=== PATIENT | female | born 1970 | race Caucasian/White ===

== ENCOUNTER 2020-12-27 16:36 | Emergency (ER) | payer OTHER, SELFPAY ==
[2020-12-27 17:04] VITALS: BP 158/97; PULSE 69; RESP 18; TEMP 36.9; O2SAT 95; BMI 41.3
--- NOTE | 2020-12-27 20:46 | ED.GENADULT ---
HPI - General Adult General Chief complaint: General Medical Stated complaint: jaw pain Time Seen by Provider: 12/27/20 20:46 Source: patient Mode of arrival: ambulatory Limitations: no limitations History of Present Illness HPI narrative: Came in for evaluation of left jaw pain and left facial swelling. 50-year-old female with history of grinding her teeth with TMJ tendinitis, came in for 4 days of left Gus, left ear, left facial pain, feeling dizzy, patient also had left eye discharge which is clear now. No fever or chills, no nausea, no vomiting, no headache, no chest pain. Related Data Allergies Allergy/AdvReac Type Severity Reaction Status Date / Time amoxicillin [AMOXICILLIN] Allergy Unknown RASH Verified 12/27/20 17:03 doxycycline [DOXYCYCLINE] Allergy Unknown RASH Verified 12/27/20 17:03 clavulanic acid Allergy Rash Verified 12/27/20 17:03 [From Augmentin] Review of Systems Review of Systems: All other systems are reviewed and are negative Constitutional: Reports as per HPI and Reports no additional constitutional complaints Eyes: Reports as per HPI and Reports no additional eye complaints Reports system reviewed and no additional complaints, except as documented Cardiovascular: Reports as per HPI and Reports no additional cardiovascular complaints Respiratory: Reports as per HPI and Reports no additional respiratory complaints Gastrointestinal: Reports as per HPI and Reports no additional gastrointestinal complaints Genitourinary: Reports no additional female genitourinary complaints Musculoskeletal: Reports no additional musculoskeletal complaints Skin/Breast: Reports system reviewed and no additional complaints, except as docu Psychiatric: Reports no additional psychiatric complaints Endocrine: Reports no additional endocrine complaints Hematologic/Lymphatic: Reports no additional hematologic/lymphatic complaints Allergic/Immunologic: Reports no additional allergic/immunologic complaints Reports system reviewed and no additional complaints, except as documented and Reports Abnormal speech present [facility] Past Medical History Medical History PFO (patent foramen ovale) TIA (transient ischemic attack) Social History Social History Advance Directives: No Advance Directives Information Provided: No Patient : No Physical Exam Vital Signs: Vital Signs: Last Vital Signs Temp 98.5 F 12/27/20 17:04 Pulse 69 12/27/20 17:04 Resp 18 12/27/20 17:04 BP 158/97 H 12/27/20 17:04 Pulse Ox 95 12/27/20 17:04 Body Mass Index 41.3 Vital signs have been reviewed as appeared to be correct. Blood pressure elevated. Heart rate normal. Respiration rate normal. Temperature normal. Oxygen saturation normal. Appearance: Alert. Oriented X3. No acute distress. Head: Normal external exam. Normocephalic. Atraumatic. No Jackson signs noted. No raccoon eyes noted, reproducible tenderness over the left TMJ, with no clicking, no dental issue, no gum swelling or fluctuation. Eyes: PERRLA. EOMI. Conjunctiva and sclera normal. Eyelids normal. ENT: TM's Normal. Pharynx normal. Uvula midline. Moist mucous membranes. No trismus noted. No drooling noted. No muffled voice noted. Neck: Normal inspection. Neck supple. FROM. No adenopathy. Thyroid Normal. No meningeal signs. No neck mass noted. CVS: Normal heart rate and rhythm. Heart sound normal. No murmurs noted. Pulses normal throughout. Respiratory: No respiratory distress. Painless inspiration. Breath sounds normal. No wheezes/rales/rhonchi noted. Chest nontender. No accessory muscle usage noted or decreased air movement noted. Abdomen: Soft and nontender. Bowel sounds normal in all 4 quadrants. No distention noted. No organomegaly noted. No visible injury noted. Back: No CVA tenderness. Full range of motion noted. Skin: Skin warm and dry. Normal skin color. Normal skin turgor. No rashes/lesions/lacerations noted. Extremities: No lower extremity edema. Extremities exhibit normal range of motion. Extremities nontender. Neuro: Oriented X 3. Cranial nerve exam: II-XII are grossly intact No motor deficit. No sensory deficit. Reflexes normal. Course Course Course Narrative: Assessment and plan. 50-year-old female came in for evaluation of a left TMJ pain, physical exam is consistent with left TMJ. Patient was instructed to wear a mouth guard, follow up with her dentist, use NSAIDs, apply ice. Discharge Plan Discharge Clinical Impression: TMJ arthralgia Qualifiers: Laterality: left Qualified Code(s): M26.622 - Arthralgia of left temporomandibular joint Patient Disposition: Home, Self-Care Instructions: Temporomandibular Disorder (ED) Additional Instructions: Follow-up with your dentist. Referrals: Kirill Potts MD [Primary Care Provider] - 2 days
[2020-12-27 20:50] VITALS: BP 146/87; PULSE 67; RESP 18; TEMP 36.7; O2SAT 95
== END 2020-12-27 21:14 | disposition home or self-care (01) ==
PROVIDERS: Emergency Provider Emergency Medicine; PCP Internal Medicine
DX: M26.622 Arthralgia of left temporomandibular joint (principal)
CPT/HCPCS: 99282

== ENCOUNTER 2021-07-01 09:56 | Outpatient (REF) | payer OTHER, SELFPAY ==
--- NOTE | ~2021-07-01 | XR_ITS ---
EXAMINATION: XR SHOULDER, LEFT CLINICAL INFORMATION: Pain COMPARISON: Previous x-ray June 2013 TECHNIQUE: AP external rotation, Grashey, scapular Y, and axillary views of the left shoulder. FINDINGS: Bone alignment is normal. No acute fracture or dislocation is seen. The glenohumeral joint is normal. There is mild arthritis at the acromioclavicular joint. There are new soft tissue calcifications or ossifications over the left superior glenoid. These are seen on one view/neutral AP view only. Soft tissues are otherwise normal. XR/XR shoulder LT min 2V IMPRESSION: Mild arthritis of the acromion clavicular joint. New soft tissue calcifications or ossifications adjacent to the superior glenoid.
== END 2021-07-01 09:57 | disposition home or self-care (01) ==
LOC: HO.HOSX 09:56
PROVIDERS: PCP Internal Medicine; Visit Provider Physician Assistant
DX: M75.102 Unspecified rotator cuff tear or rupture of left shoulder, not specified as traumatic (principal)
CPT/HCPCS: 73030

== ENCOUNTER 2022-11-04 10:53 | Outpatient (REF) | payer OTHER, SELFPAY | END 2022-11-04 10:54 | disposition home or self-care (01) | LOC: HO.HOSX 10:53 | PROVIDERS: Visit Provider Physician Assistant | DX: Z13.89 Encounter for screening for other disorder (principal) ==

== ENCOUNTER 2023-02-06 07:17 | Emergency (ER) | payer OTHER, SELFPAY ==
--- NOTE | ~2023-02-06 | CT_ITS ---
EXAMINATION: CT ABDOMEN AND PELVIS WITH CONTRAST CLINICAL INFORMATION: Abdominal pain with bruising COMPARISON: None available. TECHNIQUE: Multidetector volumetric images were obtained from the superior aspect of the liver through the pubic symphysis following administration 85 mL of Omnipaque 350 intravenous contrast. Sagittal and coronal reformatted images were obtained on the technologist's workstation. Oral contrast: No This CT examination was performed using dose optimization techniques as appropriate, variously including the following: *Automated exposure control *Adjustment of mA and/or kV according to patient size (this includes techniques or standardized protocols for targeted exams where dose is matched to indication/reason for exam; i.e. extremities or head) *Use of iterative reconstruction technique DLP: 723 mGy-cm FINDINGS: FIELD RESEARCH ASSOCIATE: Nonspecific bowel pattern. LUNG BASES: Mild atelectasis. Nonenlarged heart. No pericardial effusion. LIVER, GALLBLADDER, AND BILIARY TREE: The liver is normal in size, shape, and attenuation. No focal hepatic lesion or biliary ductal dilatation is present. The gallbladder is unremarkable with no evidence of radiopaque gallstones, gallbladder wall thickening, or obvious pericholecystic inflammatory changes. PANCREAS: Unremarkable. SPLEEN: Unremarkable. ADRENAL GLANDS: Unremarkable. KIDNEYS AND URETERS: The kidneys are normal in size, shape, and attenuation. No hydronephrosis or calculi seen. Mild left ureteral prominence. No perinephric stranding. BLADDER: Unremarkable. GASTROINTESTINAL TRACT: Decompressed stomach. Nonobstructive bowel pattern. Unremarkable appendix. No colonic pathology recognized. ABDOMINAL WALL: Dense and comparatively enlarged right rectus abdominis muscle with surrounding soft tissue stranding. Rectus diastasis. Small fat filled umbilical and inguinal hernias. LYMPH NODES: Normal. VASCULAR: Atherosclerotic calcifications nonaneurysmal aorta with patency of mesenteric vessels. Unremarkable inferior vena cava and iliac veins. Patent portal system. PELVIC VISCERA: Likely nabothian cysts and bilateral small ovarian cysts. Pelvic phleboliths. OSSEOUS STRUCTURES: L5-S1 disc bulge. No suspicious osseous lesions CT/CT abdomen pelvis w IV con IMPRESSION: Right rectus hematoma. Fleischner guidelines were followed.
[2023-02-06 07:20] VITALS: BP 191/80; PULSE 85; RESP 18; TEMP 36.8; O2SAT 94; BMI 43.7
[2023-02-06 07:37] VITALS: BP 196/84; PULSE 84; RESP 20; O2SAT 96
--- NOTE | 2023-02-06 07:44 | ED.SKABFB ---
HPI - Skin/Abscess/Foreign Bdy General Chief complaint: Skin/Abscess/Foreign Body Stated complaint: Bruising on stomach, sharp pain Time Seen by Provider: 02/06/23 07:29 History of Present Illness HPI narrative: Patient is a 52-year-old female presenting with having bruising over the abdomen. No nausea no vomiting. No new back pain. History of having elevated white counts in the past. Denies any fever chills. No pain on urination no dizziness. Bowel movement has been normal. No blood in the stool. Not on blood thinners. On aspirin because of a patent foramen ovale. Related Data Home Medications Medication Instructions Recorded Confirmed aspirin 325 mg tablet,delayed 325 mg PO DAILY 07/01/21 release fluoxetine 20 mg capsule (Prozac) 20 mg PO DAILY 07/01/21 metoprolol tartrate 50 mg tablet 50 mg PO DAILY 07/01/21 (Lopressor) rosuvastatin 40 mg tablet (Crestor) 40 mg PO DAILY 07/01/21 Previous Rx's Medication Instructions Recorded celecoxib 200 mg capsule 200 mg PO BID 30 days #60 caps 08/06/21 Allergies Allergy/AdvReac Type Severity Reaction Status Date / Time amoxicillin [AMOXICILLIN] Allergy Unknown RASH Verified 06/26/21 15:07 doxycycline [DOXYCYCLINE] Allergy Unknown RASH Verified 06/26/21 15:07 clavulanic acid Allergy Rash Verified 06/26/21 15:07 [From Augmentin] Review of Systems Review of Systems: No fever no chills no chest pain or shortness of breath Yes all other systems are reviewed and are negative PMFSH Past Medical History Attestation statement: The following information was validated with the patient. 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 Oriented X3. No acute distress. Eyes: Pupils equal, round and reactive to light. ENT: Pharynx normal. Neck: Normal inspection. Neck supple. No lymph nodes noted. No crepitus CVS: Normal heart rate and rhythm. Pulses normal. Normal S1 and S2 Respiratory: No respiratory distress. Breath sounds normal. No Wheezing. No rales Abdomen: Soft and nontender. No rigidity. No distention. good BS x4. Positive ecchymosis over the abdomen over the periumbilical area. Skin: Skin warm and dry. Normal skin color. Normal skin turgor. Extremities: No lower extremity edema. Neurovascular intact to all extremities. No Lacerations. No Rash Neuro: Oriented X 3. No motor deficit. No sensory deficit. Moving all extermities. No slurred speech Medications Administered Discontinued Medications Generic Name Dose Route Start Last Admin Trade Name Freq PRN Reason Stop Dose Admin Iohexol 85 ml 02/06/23 08:37 02/06/23 08:38 Iohexol 350 Mg/Ml 100 Ml Infus..Btl IV 02/06/23 08:38 85 ml ONCE ONE Administration Medical Decision Making Medical Decision Making [facility] Narrative: CT scan of the abdomen pelvis showed a rectus hematoma. Patient's hemoglobin is normal not on blood thinners well appearing pain is limited. There is no intra-abdominal issues including obstruction abscess perforation. There is no evidence of cholecystitis there is no evidence for diverticulitis patient's lipase is normal. No evidence for pancreatitis. Patient's white count was elevated but she had a history of such. Differential Diagnosis Differential Diagnoses: The differential diagnosis associated with the presentation includes Hematoma, diverticulitis, obstruction, abscess, perforation, cholecystitis Lab Data [facility] Lab Attestation statement: I reviewed the patient's lab results. 02/06/23 07:45 02/06/23 07:45 Labs: Lab Results 02/06/23 02/06/23 Range/Units 07:45 08:15 WBC 15.9 H (4.8-10.8) X10*3/uL RBC 5.17 (4.20-5.50) X10*6/uL Hgb 15.8 (12.0-16.0) g/dl Hct 47.0 (37.0-47.0) % MCV 90.9 (80.0-98.0) fL MCH 30.6 (27.0-33.0) pg MCHC 33.6 (31.0-35.0) g/dl RDW 13.8 (11.0-16.0) % Plt Count 256 (160-400) X10*3/uL MPV 9.9 (9.4-12.3) fL Immature Gran % (Auto) 1.6 H (0.0-0.4) % Neut % (Auto) 72.5 (45-73) % Lymph % (Auto) 15.6 L (20-40) % [place] % (Auto) 8.4 (2-11) % Eos % (Auto) 1.5 (0-4) % Baso % (Auto) 0.4 (0-2) % Lymph # (Auto) 2.5 (1.2-4.9) X10*3/uL [place] # (Auto) 1.3 H (0.1-1.2) X10*3/uL Eos # (Auto) 0.2 (0.0-0.4) X10*3/uL Baso # (Auto) 0.1 (0.0-0.2) X10*3/uL Abs Immat Gran (auto) 0.25 H (0.00-0.03) X10*3/uL Absolute Neuts (auto) 11.6 H (2.0-8.3) x10*3/uL Absolute Nucleated RBC 0.000 (0.0-0.012) X10*3/uL Nucleated RBC % (auto) 0.0 (0.0-0.2) /100WBC Sodium 138 (135-145) mmol/L Potassium 4.0 (3.3-5.1) mmol/L Chloride 105 (96-108) mmol/L Carbon Dioxide 23 (22-29) mmol/L Anion Gap 14 (12-20) BUN 14 (9-16) mg/dL Creatinine 0.73 (0.5-1.4) mg/dL Estim Creat Clear Calc 107.2 Estimated GFR > 60 Random Glucose 138 H (60-115) mg/dL Calcium 10.4 H (8.4-10.2) mg/dL Total Bilirubin 0.6 (0.0-1.0) mg/dL Direct Bilirubin 0.2 (0.0-0.5) mg/dL AST 22 (5-31) U/L ALT 24 (0-31) U/L Alkaline Phosphatase 74 (39-117) U/L Total Protein 7.0 (6.5-8.0) g/dL Albumin 4.3 (3.5-5.0) g/dL Lipase 18 (8-78) U/L Urine Color Yellow Urine Appearance Clear Urine pH 5.5 (5.0-9.0) Ur Specific [place] 1.010 (1.005-1.025) Urine Protein Negative (Neg-Trace) mg/dL Urine Glucose (UA) Negative (Negative) mg/dL Urine Ketones Negative (Negative) mg/dL Urine Blood Negative (Negative) Urine Nitrite Negative (Negative) Ur Leukocyte Esterase Negative (Negative) Urine RBC 0-2 (0-2) /HPF Urine WBC 0-5 (0-5) /HPF Ur Squamous Epith Cells 0-2 (0-2) /HPF Urine Bacteria None Seen (None Seen) Hyaline Casts 0-2 (0-2) /LPF Independent Interpretation I performed an independent interpretation of an: CT Scan (No gross obstruction abscess perforation) Radiology Impression Discussion of test interpretation with radiology: I have reviewed the radiologist's reading. External Record Review External record reviewed: Outpatient record Previous outpatient orthopedic record reviewed Chronic Conditions Elevated white count Discharge Plan Discharge Clinical Impression: Hematoma Patient Disposition: Home, Self-Care Instructions: Hematoma (ED) Prescriptions: No Action celecoxib 200 mg capsule 200 mg PO BID 30 Days Qty: 60 0RF rosuvastatin [Crestor] 40 mg tablet 40 mg PO DAILY aspirin 325 mg tablet,delayed release (DR/EC) 325 mg PO DAILY fluoxetine [Prozac] 20 mg capsule 20 mg PO DAILY metoprolol tartrate [Lopressor] 50 mg tablet 50 mg PO DAILY Referrals: Kirill Potts III, MD [Primary Care Provider] -
[2023-02-06 07:48] LABS: MANUAL DIFF FLAG NO
[2023-02-06 07:50] LABS: Basophils Absolute Auto 0.1 X10*3/uL (0.0-0.2); Basophils Percent Auto 0.4 % (0-2); Eosinophils Absolute Auto 0.2 X10*3/uL (0.0-0.4); Eosinophils Percent Auto 1.5 % (0-4); Hemoglobin 15.8 g/dl (12.0-16.0); Imm Gran Abs Auto 0.25 X10*3/uL (0.00-0.03); Imm Gran Pct Auto 1.6 % (0.0-0.4); Lymphocytes Absolute Auto 2.5 X10*3/uL (1.2-4.9); Lymphocytes Percent Auto 15.6 % (20-40); Mean Corpuscular HGB Conc 33.6 g/dl (31.0-35.0); Mean Corpuscular Hemoglobin 30.6 pg (27.0-33.0); Mean Corpuscular Volume 90.9 fL (80.0-98.0); Mean Platelet Volume 9.9 fL (9.4-12.3); Monocytes Absolute Auto 1.3 X10*3/uL (0.1-1.2); Monocytes Percent Auto 8.4 % (2-11); Neutrophils Absolute Auto 11.6 x10*3/uL (2.0-8.3); Neutrophils Percent Auto 72.5 % (45-73); Platelet Count 256 X10*3/uL (160-400); Red Blood Count 5.17 X10*6/uL (4.20-5.50); Red Cell Distribution Width 13.8 % (11.0-16.0); White Blood Count 15.9 X10*3/uL (4.8-10.8)
[2023-02-06 08:13] LABS: Alanine Aminotransferase 24 U/L (0-31); Albumin Level 4.3 g/dL (3.5-5.0); Alkaline Phosphatase 74 U/L (39-117); Anion Gap 14 (12-20); Aspartate Amino Transferase 22 U/L (5-31); Bilirubin Direct 0.2 mg/dL (0.0-0.5); Bilirubin Total 0.6 mg/dL (0.0-1.0); Blood Urea Nitrogen 14 mg/dL (9-16); Calcium 10.4 mg/dL (8.4-10.2); Carbon Dioxide 23 mmol/L (22-29); Chloride 105 mmol/L (96-108); Creatinine Clr Calc Pharmacy 107.2; Estimated Glomerular Filt Rate > 60; Glucose Random 138 mg/dL (60-115); Lipase 18 U/L (8-78); Sodium 138 mmol/L (135-145)
[2023-02-06 08:21] LABS: Appearance Urine Clear; Color Urine Yellow; Glucose Urine UA Negative (Negative); Leukocyte Esterase Urine Negative (Negative); Nitrite Urine Negative (Negative); PH 5.5 (5.0-9.0); Urine Blood Negative (Negative); Urine Ketones Negative (Negative); Urine Protein Negative (Neg-Trace)
[2023-02-06 08:26] LABS: Bacteria Urine None Seen (None Seen); Hyaline Casts Urine 0-2 /LPF (0-2); RBC Urine 0-2 /HPF (0-2); Squamous Epithelial Cell Urine 0-2 /HPF (0-2); WBC Urine 0-5 /HPF (0-5)
[2023-02-06] MEDS: iohexoL 350 MG/ML 100 ML INFUS..BTL 85 ML IV (08:38)
[2023-02-06 09:24] VITALS: BP 168/88
== END 2023-02-06 09:43 | disposition home or self-care (01) ==
PROVIDERS: Emergency Provider Emergency Medicine Emergency Medical Services; PCP Internal Medicine
DX: M79.81 Nontraumatic hematoma of soft tissue (principal); E78.00 Pure hypercholesterolemia, unspecified; Q21.12 Patent foramen ovale; Z86.73 Personal history of transient ischemic attack (TIA), and cerebral infarction without residual deficits
CPT/HCPCS: 36415; 74177; 80048; 80076; 81001; 83690; 85025; 99284; Q9967

== ENCOUNTER 2023-04-10 10:28 | Outpatient (REF) | payer OTHER, SELFPAY | END 2023-04-10 10:29 | disposition home or self-care (01) | LOC: HO.HOSX 10:28 | PROVIDERS: PCP Internal Medicine; Visit Provider Physician Assistant | DX: M54.9 Dorsalgia, unspecified (principal); M25.551 Pain in right hip; M25.552 Pain in left hip | CPT/HCPCS: 72110; 73522 ==

== ENCOUNTER 2023-04-10 10:28 | Outpatient (AMB) | payer OTHER, SELFPAY ==
--- NOTE | 2023-04-10 10:39 | A.SPINEOV_ITS ---
Intake Intake Visit Reasons: Low back pain Intake Note: Ms. Singh is here today c/o excruciating low back pain. MRI done @ [place]/brought disc. 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 At it was really just a subtle discomfort but gradually over the course of a few months became quite severe. She took a trip to [facility] [facility] in December and was in tremendous amount of pain at that time. The pain is along the lower lumbar area of her spine into her sacral region. It wraps around into her hips and into her anterior groin and on the left side goes down into her left anterior thigh. It is particularly bad if she standing and walking but does improve when she sits down. It does not completely go away when she sits down however. At nighttime when she is lying down it seems to be much more tolerable. She underwent physical therapy and massage which only made it worse. She takes Tylenol, Excedrin, Percocet cyclobenzaprine. These things take the edge off a little bit but do not give her significant amount of relief. She has had no injection yet. She is here today for an evaluation of an MRI showing [id number] lumbar degenerative disc disease. PMH: She had a history of a PFO with the stroke about 15 years ago. She has been treated with full-dose aspirin for the PFO and has been well ever since without any issues. History of hypercholesterolemia, depression, anxiety, PTSD. She is borderline diabetic with her last A1c being in the 6.9 range. History of sleep apnea she uses a CPAP at night. She also has a history of asthma but continues to smoke. Bilateral knee arthroscopy. Morbid obesity. Social hx: She smokes about a pack and half a day mostly due to treat her anxiety and depression, she does not drink any significant amount of alcohol however. Medications: Prozac, rosuvastatin, metoprolol, ellipse the inhaler, Percocet Allergies: Augmentin, doxycycline, amoxicillin Physical exam: BMI 44 She is awake alert oriented morbidly obese no acute distress, she has full strength of bilateral lower extremities with normal reflexes, positive EDWARD sign on the right Imaging review: Lumbar MRI done at [place] in January of 2023 shows mild degenerative disc disease, she has significant epidural lipomatosis. There is no misalignment that I see, no evidence of significant spondylolisthesis. I did flexion-extension x-rays here in the office with no signs of instability. I also did hip x-rays, there is no formal read back yet but it just looks like arthritis in both of her hips with also evidence of arthritic SI joints Impression: 52-year-old female presents with 6-7 months of progressively worsening low back pain with standing and walking gets better when she sits down or lays down. She has been through some basic conservative treatment. She has an MRI showing some mild degenerative disc disease with epidural lipomatosis. Nothing that looks overtly surgical. X-rays do not show any signs of misalignment in a vertical position. She does have very arthritic looking SI joints on both sides. It would be an unusual presentation have such severe inflammation of the SI joints. It may be worth considering an injection in these to see if it helps the severity of her pain, but she has had bad reactions to this in the past do not want to consider it. The other possibility this is just a long episode of muscular spasm that will just go away on its own with time. I showed her her x-rays, she has no limitations and can participate in activities as tolerated. She will call me if she wants to consider the injection. Thank you for allowing us to care for your patient. The total time spent with this visit with this patient was 45 minutes reviewing history, physical exam, lumbar imaging review, and implementation of treatment plan or further diagnostic testing Elder Hernandez MD,PhD [facility] [place] [facility] Orders: Orders XR lumbar spine 4V min Today M54.9 - Dorsalgia, unspecified XR hips VICTOR HUGO min 3V Today M25.559 - Pain in unspecified hip Coding Level of Care Code New Pt Level 4 (13171) Diagnoses Hip pain M25.559 Back pain M54.9
== END 2023-04-10 11:51 | disposition home or self-care (01) ==
PROVIDERS: PCP Internal Medicine; Visit Provider Physician Assistant
DX: M25.559 Pain in unspecified hip (principal); M54.9 Dorsalgia, unspecified
CPT/HCPCS: 99204

== ENCOUNTER 2023-04-29 09:32 | Outpatient (AMB) | payer BC, SELFPAY ==
--- NOTE | 2023-04-29 09:40 | MHC.OFFVIS ---
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 She was previously seen by Elder RAMSEY. she comes in stating that she can hardly walk or stand anymore. The pain radiates down both legs into the hip and groins and then further down into the lower legs and feet. Recently numbness in her left foot developed. She notices weakness in her proximal leg musculature and has fallen twice. Bending forward or sitting down improves her symptoms. Second complaint is possible dexterity loss. She denies balance problems or urinary problems. Physical exam: She is able to reproduce the radiating pain down her legs after standing 630 seconds in the office. Motor exam is intact 5/5. Sensory exam is intact. I did find hyperreflexia of the upper extremities. Radiologic studies: MRI of the lumbar spine shows moderate to severe degenerative L4-5 spinal stenosis and epidural lipomatosis which produces additional stenosis at L3-4. In summary, this patient is suffering from severe neurogenic claudication due to lumbar spinal stenosis L4-5 and possibly L3-4. I offered her an L4-5 lumbar decompression and possibly L3-4 which will be determined intraoperatively. She will get clearance from her personal shopper, who sees her for a PFO. She needs to stop aspirin 5 days prior to surgery. I will also order an MRI of the cervical spine based on history of possible dexterity loss and hyperreflexia to rule out spinal cord compression before the lumbar decompression is done. I move her up in my schedule to 05/12/2023 due to severity of her symptoms. I also filled out [facility] paperwork today. I spent 40 minutes in this consult to discuss the plan. Angelo Hernandez MD, PhD Spine Fellowship Trained Neurosurgeon Director, [facility] [place] [facility] Orders: Orders MR cervical spine wo con Today R29.2 - Abnormal reflex Coding Level of Care Code Est Pt Level 5 (45026) Diagnoses Lumbar stenosis with neurogenic claudication M48.062
== END 2023-04-29 10:53 | disposition home or self-care (01) ==
PROVIDERS: PCP Internal Medicine; Visit Provider Neurological Surgery
DX: M48.062 Spinal stenosis, lumbar region with neurogenic claudication (principal)
CPT/HCPCS: 99215

== ENCOUNTER → 2023-04-29 09:32 | Outpatient (BNVA) | payer BC, SELFPAY | PROVIDERS: PCP Internal Medicine; Visit Provider Neurological Surgery ==

== ENCOUNTER 2023-04-29 15:02 | Outpatient (REF) | payer BC, SELFPAY ==
--- NOTE | ~2023-04-29 | MR_ITS ---
EXAMINATION: MR CERVICAL SPINE WITHOUT CONTRAST CLINICAL INFORMATION: Abnormal reflexes. COMPARISON: None available. TECHNIQUE: Multiplanar, multisequential imaging of the cervical spine was performed without contrast. Slightly limited study with motion artifacts. FINDINGS: VERTEBRAL BODIES AND PARASPINAL SOFT TISSUES: The marrow signal is within normal limits. Multilevel reduced intradiscal signal evident from mild degeneration. No marrow or soft tissue edema is seen. There are no compression fractures. Mild retrosubluxation evident at the C6-C7 level. The vertebral artery flow voids are maintained. The imaged portions of the lungs are grossly clear. CERVICOMEDULLARY JUNCTION AND VISUALIZED POSTERIOR FOSSA: The craniovertebral junction and imaged portions of the brain parenchyma appear normal. No cord signal abnormality or syrinx is seen. SPINAL LEVELS: C2-C3: No significant disc pathology. No central canal stenosis or foraminal narrowing. C3-C4: Shallow disc bulge and uncovertebral joint spurring with moderate left foraminal encroachment. No central canal stenosis. C4-C5: Mild disc bulge and endplate spurring without central canal stenosis. Moderate right foraminal narrowing. C5-C6: Loss of disc height and broad-based central disc protrusion mildly distorts the ventral cord. Svty-ev-bijurcfx central canal stenosis and xeoi-ne-qfzmrzka left foraminal narrowing with endplate spurring. C6-C7: Small central disc protrusion. No central canal stenosis. Mild left foraminal narrowing. C7-T1: Mild posterior disc bulge without central canal stenosis or foraminal encroachment. MR/MR cervical spine wo con IMPRESSION: Limited study with motion artifacts. 1. Mild multilevel cervical spondylosis. No cord signal abnormality. Broad-based central disc protrusion mildly distorting the ventral cord at the C5-C6 level with ontd-wo-ituzcshg central canal stenosis and left foraminal narrowing. 2. Moderate left foraminal narrowing at the C3-C4 level. Moderate right foraminal narrowing at the C4-C5 level. Small central disc protrusion at the C6-C7 level.
== END 2023-04-29 15:03 | disposition home or self-care (01) ==
LOC: HO.MRI 15:02
PROVIDERS: PCP Internal Medicine; Visit Provider Neurological Surgery
DX: R29.2 Abnormal reflex (principal)
CPT/HCPCS: 72141

== ENCOUNTER 2023-05-12 09:24 | Day surgery (SDC) | payer BC, SELFPAY ==
[2023-05-06 12:10] VITALS: BP 147/80; PULSE 74; RESP 16; O2SAT 96
[2023-05-12] VITALS (10 sets, daily range): BP systolic 113–160; BP diastolic 60–89; PULSE 78–84; RESP 12–16; TEMP 36.4–37.5; O2SAT 93–99; BMI 45.0
--- NOTE | ~2023-05-12 | FL_ITS ---
EXAMINATION: XR FLUOROSCOPY WITH IMAGES CLINICAL INFORMATION: Lumbar decompression. COMPARISON: None available. TECHNIQUE: Fluoroscopy Supervised By: Dr. Angelo Hernandez. Fluoroscopy Time: 0.0 minutes. Cumulative Dose: 5.87 mGy. DAP: 1.60 Gy-cm2. Images: 2. FINDINGS: There are 2 digital images obtained of lower lumbar spine with needle positioned posterior to L4-L5 disc level. Visualized vertebral bones and disc spaces are normal. FL/FL guidance in OR IMPRESSION: Fluoroscopy guidance was provided to referring physician for pain management.
--- NOTE | 2023-05-12 07:15 | MHC.SHP ---
Pre-Procedural Eval Section A - 24 Hr Update-Section A only Date of Service: 05/12/23 The patient is an INPATIENT: No Changes since office visit: No Cold of Flu in the past 2 weeks, No New Medical Problems, No Changes in Medication and No Patient answered all questions The patient has been examined within 24 hours of the surgical procedure. The History & Physical has been completed within 30 days and I have reviewed it.: No Section B - Complete if H&P > 30 days Chief Complaint: Spinal stenosis, lumbar region with neurogenic cla Allergies: Allergies Allergy/AdvReac Type Severity Reaction Status Date / Time amoxicillin [AMOXICILLIN] Allergy Unknown RASH Verified 06/26/21 15:07 doxycycline [DOXYCYCLINE] Allergy Unknown RASH Verified 06/26/21 15:07 clavulanic acid Allergy Rash Verified 06/26/21 15:07 [From Augmentin] cortisone Allergy Redness of Verified 05/06/23 12:02 Skin methylprednisolone Allergy Redness of Verified 05/06/23 12:02 Skin Review of Systems Sugical H&P ROS: Negative: Constitution, Cardiovascular, Respiratory, Neurological, Psychiatric, Hem-Onc, Allergic/Immunologic, Gastrointestinal, Genitourinary, Musculoskeletal, Integumentary, Endocrine and Eyes/Ears/Nose/Throat Exam Surgical H&P Exam: Not Evaluated: HEENT, Not Evaluated: Heart, Not Evaluated: Lungs, Not Evaluated: Extremities, Not Evaluated: Abdomen, Not Evaluated: Skin and Not Evaluated: Neurological Plan Diagnosis/Plan: Unchanged L4-5 decompression, possible L3-4 Time Spent With Patient Time: Total time managing care of this patient today _9___ minutes.
[2023-05-12] MEDS: methocarbamoL 750 MG TABLET PO (10:59)
[2023-05-12] MEDS: Gabapentin 300 MG CAPSULE PO (10:59)
[2023-05-12 11:07] LABS: Glucose, Whole Blood 127 mg/dL (60-115)
--- NOTE | 2023-05-12 12:05 | HO.ANESPROP2 ---
Documented by User: Brenda Maya NP 05/06/23 12:48 HPI - Anesthesia Eval Consult details Narrative: 52yo F for L4-5 Microlumbar Decompression, possible L3-4 Follows [facility] - PFO, Hx of TIA. Aspirin only, ok to hold 5 days No recent illness No CP/SOB with very minimal activity d/t pain. Prior to back pain, no issues with hiking. Hiked [facility] 12/2022. Asthma stable with daily Anoro. Albuterol needed ~ 1 x weekly PMFSH Active Problems Active Problems: All Active Problems (Updated 05/06/23 @ 12:00 by Rachel Barragan RN) Lumbar stenosis with neurogenic claudication (Acute) Hyperreflexia (Acute) Back pain (Acute) Hip pain (Acute) Painful arc syndrome of left shoulder (Acute) Past Medical History Medical History (Updated 05/06/23 @ 12:56 by Rachel Barragan RN) COVID-19 Back pain Arthritis PTSD (post-traumatic stress disorder) Anxiety Depression Weakness Leukocytosis Sleep apnea Asthma Hypercholesteremia PFO (patent foramen ovale) TIA (transient ischemic attack) Family History Family history of problems with anesthesia: No Surgical History Surgical History (Updated 05/06/23 @ 12:01 by Rachel Barragan RN) Hx of cardiac catheterization S/P right knee arthroscopy History of Problems with Anesthesia: No Social History Social History Are you a primary career services coordinator to a significant other at home: No Do you presently have visiting nurse or other home services: No Patient Tobacco Use Status: Current everyday Tobacco user Tobacco use type: Cigarette Cigarette Packs Per Day: 1 Cigarettes Per Day: 20.0 Years Smoked: 33 Use of substances other than those prescribed or required for medical reasons: No Have you been hit, kicked, punched, or otherwise hurt by someone within the past year? 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 Allergy/AdvReac Type Severity Reaction Status Date / Time amoxicillin [AMOXICILLIN] Allergy Unknown RASH Verified 05/12/23 10:01 doxycycline [DOXYCYCLINE] Allergy Unknown RASH Verified 05/12/23 10:01 clavulanic acid Allergy Rash Verified 05/12/23 10:01 [From Augmentin] cortisone Allergy Redness of Verified 05/12/23 10:01 Skin methylprednisolone Allergy Redness of Verified 05/12/23 10:01 Skin Home Medications Medication Instructions Recorded Confirmed Last Taken Type aspirin 325 mg tablet,delayed 325 mg PO DAILY 07/01/21 05/12/23 05/06/23 History release fluoxetine 20 mg capsule (Prozac) 20 mg PO BEDTIME 07/01/21 05/12/23 05/11/23 History rosuvastatin 40 mg tablet (Crestor) 40 mg PO BEDTIME 07/01/21 05/12/23 05/11/23 History albuterol sulfate 90 mcg/actuation 1 inh inhalation QID PRN Shortness 05/06/23 05/12/23 05/12/23 History aerosol inhaler Of Breath Or Wheezing metoprolol succinate 25 mg 12.5 mg PO BID 05/06/23 05/12/23 05/12/23 History tablet,extended release 24 hr oxycodone-acetaminophen 5 mg-325 1 tab PO QID PRN Pain 05/06/23 05/12/23 05/12/23 History mg tablet umeclidinium 62.5 mcg-vilanterol 1 ea inhalation DAILY 05/06/23 05/12/23 05/12/23 History 25 mcg/actuation powdr for inhalation (Anoro Ellipta) Exam Height,Weight and Vital Signs: Height 5 ft 3 in Last Vital Signs Pulse 74 05/06/23 12:10 Resp 16 05/06/23 12:10 BP 147/80 H 05/06/23 12:10 Pulse Ox 96 05/06/23 12:10 O2 Del Method Room Air 05/06/23 12:10 Airway Mallampati Class: III TM Dist: <=3cm Neck ROM: Limited (OA, cervical stenosis) Partial: Upper Loose/Missing/Broken Teeth: Yes (Lower molars pulled, crown right upper molar) Heart: RRR Lungs: CTAB Assessment and Plan Assessment Anesthesia Assessment: Anesthesia Plan Discussed, Smoking Cess. Discussed and PAT Visit Final Anesthetic Review Family History of Problems with Anesthesia: No History of Problems with Anesthesia: No Documented by User: Malu Del Rio DO 05/12/23 12:10 PMFSH Past Medical History Medical History (Updated 05/06/23 @ 12:56 by Rachel Barragan RN) COVID-19 Back pain Arthritis PTSD (post-traumatic stress disorder) Anxiety Depression Weakness Leukocytosis Sleep apnea Asthma Hypercholesteremia PFO (patent foramen ovale) TIA (transient ischemic attack) Family History Family history of problems with anesthesia: No Surgical History Surgical History (Updated 05/06/23 @ 12:01 by Rachel Barragan RN) Hx of cardiac catheterization S/P right knee arthroscopy History of Problems with Anesthesia: No Social History Social History Are you a primary career services coordinator to a significant other at home: No Do you presently have visiting nurse or other home services: No Patient Tobacco Use Status: Current everyday Tobacco user Tobacco use type: Cigarette Cigarette Packs Per Day: 1 Cigarettes Per Day: 20.0 Years Smoked: 33 Use of substances other than those prescribed or required for medical reasons: No Have you been hit, kicked, punched, or otherwise hurt by someone within the past year? 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 Allergy/AdvReac Type Severity Reaction Status Date / Time amoxicillin [AMOXICILLIN] Allergy Unknown RASH Verified 05/12/23 10:01 doxycycline [DOXYCYCLINE] Allergy Unknown RASH Verified 05/12/23 10:01 clavulanic acid Allergy Rash Verified 05/12/23 10:01 [From Augmentin] cortisone Allergy Redness of Verified 05/12/23 10:01 Skin methylprednisolone Allergy Redness of Verified 05/12/23 10:01 Skin Home Medications Medication Instructions Recorded Confirmed Last Taken Type aspirin 325 mg tablet,delayed 325 mg PO DAILY 07/01/21 05/12/23 05/06/23 History release fluoxetine 20 mg capsule (Prozac) 20 mg PO BEDTIME 07/01/21 05/12/23 05/11/23 History rosuvastatin 40 mg tablet (Crestor) 40 mg PO BEDTIME 07/01/21 05/12/23 05/11/23 History albuterol sulfate 90 mcg/actuation 1 inh inhalation QID PRN Shortness 05/06/23 05/12/23 05/12/23 History aerosol inhaler Of Breath Or Wheezing metoprolol succinate 25 mg 12.5 mg PO BID 05/06/23 05/12/23 05/12/23 History tablet,extended release 24 hr oxycodone-acetaminophen 5 mg-325 1 tab PO QID PRN Pain 05/06/23 05/12/23 05/12/23 History mg tablet umeclidinium 62.5 mcg-vilanterol 1 ea inhalation DAILY 05/06/23 05/12/23 05/12/23 History 25 mcg/actuation powdr for inhalation (Anoro Ellipta) Exam Exam Date and Time: May 12, 2023 1205 Height,Weight and Vital Signs: Height 5 ft 3 in Last Vital Signs Pulse 74 05/06/23 12:10 Resp 16 05/06/23 12:10 BP 147/80 H 05/06/23 12:10 Pulse Ox 96 05/06/23 12:10 O2 Del Method Room Air 05/06/23 12:10 Height 5 ft 3 in Weight 115.212 kg Vital Signs Pulse Rate 74 05/06/23 12:10 Respiratory Rate 16 05/06/23 12:10 Blood Pressure 147/80 H 05/06/23 12:10 Pulse Oximetry 96 05/06/23 12:10 Oxygen Delivery Method Room Air 05/06/23 12:10 Pulse Rate 74 05/06/23 12:10 Respiratory Rate 16 05/06/23 12:10 Blood Pressure 147/80 H 05/06/23 12:10 Pulse Oximetry 96 05/06/23 12:10 Oxygen Delivery Method Room Air 05/06/23 12:10 Airway Mallampati Class: III TM Dist: <=3cm Heart: S1S2 Assessment and Plan Assessment Anesthesia Assessment: Anesthesia Plan Discussed and Chart Reviewed Final Anesthetic Review Family History of Problems with Anesthesia: No History of Problems with Anesthesia: No NPO: Yes ASA Class: III Final Preanesthetic Review: No Changes in Pt Med Stat, Meds/Allgs Chart Reviewed, Consent Obtained/Reviewed and Anes Risks/Benef Reviewed Patient Risk: Intermediate Procedure Risk: Intermediate Anesthetic Plan Anesthetic Plan: GA and Agree w/ Assess. and Plan Disposition: Standard PACU
--- NOTE | 2023-05-12 12:52 | PM.DS ---
DS: Providers Provider Date of Service: 05/12/23 Date of discharge: 05/12/23 Primary care physician: Kirill Potts III, MD Admitting clinician: Angelo Hernandez DS: Diagnosis Discharge Diagnosis (1) Lumbar stenosis with neurogenic claudication: Status: Acute DS: Summary Time Attestation Discharge coordination time: Less than 30 minutes Quality: Safe Use of Opioids Does Pt have an Active Cancer Diagnosis on the Problem List?: No Quality: Stroke Does the patient have a stroke diagnosis?: No Physical Exam Vital Signs: Vital Signs: Last Vital Signs Pulse 74 05/06/23 12:10 Resp 16 05/06/23 12:10 BP 147/80 H 05/06/23 12:10 Pulse Ox 96 05/06/23 12:10 O2 Del Method Room Air 05/06/23 12:10 BMI result Body Mass Index 45.0 DS: Data Data Completed and Pending Labs on day of discharge: Laboratory Results - last 24 hr 05/12/23 11:03 POC Glucose 127 H Discharge Plan Discharge Patient Disposition: Home, Self-Care Referrals: Kirill Potts III, MD [Primary Care Provider] - 1 Week Discharge Medications: Continued metoprolol succinate 25 mg tablet extended release 24 hr 12.5 mg PO BID Anoro Ellipta 62.5-25 mcg/actuation blister with device 1 ea inhalation DAILY oxycodone-acetaminophen 5-325 mg tablet 1 tab PO QID PRN (Reason: Pain) albuterol sulfate 90 mcg/actuation Hfa Aerosol Inhaler 1 inh INHALATION QID PRN (Reason: Shortness Of Breath Or Wheezing) rosuvastatin [Crestor] 40 mg tablet 40 mg PO BEDTIME aspirin 325 mg tablet,delayed release (DR/EC) 325 mg PO DAILY fluoxetine [Prozac] 20 mg capsule 20 mg PO BEDTIME Discharge Orders: Discharge Order (Routine); Ordered 05/12/23 Ordered By: Elder Flores Diet: Advance to usual diet Activity on Discharge: As tolerated Activity Restrictions/Additional Instructions: After your spinal surgery we ask you to observe the following restrictions/guidelines: Activity: It is normal to feel some discomfort as you increase your activity, but that will improve with time. We ask you avoid heavy lifting or acitivities that cause pain. As a general rule, 8lbs is a safe limit for lifting right after surgery. Walk as much as you feel comfortable but not to exhaustion. You will feel extra tired the first few days after surgery. Stay well hydrated. It is OK to walk up and down stairs You may return to driving when you are off narcotics (such as vicodin, oxycodone, dilaudid, etc), and you are back to normal functional capacity. If you have any concerns please check with office before driving. Return to work is specific to each patient and each surgery, so please speak with your doctor/PA at first follow up. Please bring paperwork such as FMLA at that time if you need it filled out. Medications: For optimum pain control, it is best to start with a combination of 500 mg of Tylenol every 4 hours with 600 mg of Motrin every 8 hours, and use narcotics as needed in between for breakthrough pain. We will give you a short supply of narcotics after surgery (usually one weeks worth). If you need more please call the office but do not use more than prescribed. You will need to give our office 48 hours notice if you need narcotics refilled and we do not fill narcotics on weekends or evenings. If you are on a narcotic, it is a good idea to take a stool softener such as colace or senna to avoid constipation If you take blood thinner such as aspirin, Plavix, Coumadin, Effient, Eliquis etc for conditions such as Afib, DVT, Pulmonary embolus, coronary disease, stents etc please speak with your surgeon about specific details as to when you can resume these medications. You can resume NSAIDs on post op day 1 (eg: Motrin, Naproxen, etc). Follow up: Please call the office, , after surgery to arrange a 3 week follow up for wound check. Wound Care: You may remove your dressing on the first day after surgery. ?You may ?leave open to air. Please do not remove the steri strips underneath. they will fall off on their own in one week. IT IS NORMAL FOR THE WOUND TO OOZE OR BE BLOODY FOR A FEW DAYS AFTER SURGERY. ?IF THIS HAPPENS JUST PLACE NEW DRESSING OVER IT TO AVOID STAINING CLOTHES. You may shower on post op day # 1 We ask that you do not let the water soak the wound. If it does get wet, just towel dry lightly. Please do not scrub your incision or place any type of chemical/ointment on the wound. No tub baths, pools or jacuzzis for one month. If you have any leaking or redness from your wound, or fevers, please call office
--- NOTE | 2023-05-12 16:10 | P.OP_ITS ---
Operative Note Operative Note Date of Service: 05/12/23 Narrative: Preoperative Diagnosis: L4-5 spinal stenosis/lateral recess stenosis Operation: L4-5 Laminotomy, Partial facetectomy and foraminotomy with use of microscope Consent Informed Consent was obtained for this operation. I have explained the nature, purpose and benefits of the operation. I have discussed the risks and benefit of the operation including possible complications or adverse events with patient/family. Alternative(s) were discussed with the patient with their relative benefits and risks as well as the consequences of not accepting the operation were included in obtaining consent. Surgeon: JAZZ WONG MD, PHD Procedure Assisted By: None Description of Procedure This patient is suffering from progressive back pain radiating down both legs. MRI shows moderate L4-5 spinal stenosis and epidural lipomatosis. The patient was offered a decompression. The procedure complications were explained. The patient was consented. The patient was brought to the operating room and endotracheally intubated. The patient was turned in prone position on the Lucas spine table. Prep and drape was done followed by timeout. A mid lumbar incision was made followed by release of the paravertebral muscle bilaterally to expose the L4-5 laminae and facet joints. An intraoperative x-ray was obtained to confirm the correct level. The microscope was brought in. The interspinous ligament was resected as well as a prior the L4 spinous process to gain access to the interlaminar space. The high-speed drill was used to do a L4-5 bilateral laminotomy until flavum ligament was reached. A #2 Kerrison was used to expand the laminotomy near flush to the pedicles and to include a partial facetectomy. The flavum ligament was opened and resected with a #3 Kerrison to decompress the underlying thecal sac. The flavum ligament was removed to decompress the lateral recess and the exiting L5 nerve roots bilaterally. Severe compression was present and relieved. A long nerve hook could be easily passed along the medial side of the pedicles as a sign of adequate decompression. The microscope was removed. Hemostasis was done. The incision was closed in 2 layers. Steri- Strips were used to approximate incision. An OpSite with Tegaderm was used to cover the incision. All sponge needle counts were correct. Patient was extubated and transported in stable is to recovery room. Anesthesia: General Estimated Blood Loss (ml): 80 mL Complications: None Duration of Surgery: Under 60 Minutes Postoperative Plan: Discharge to home
== END 2023-05-12 16:53 | disposition home or self-care (01) ==
PROVIDERS: PCP Internal Medicine; Visit Provider Neurological Surgery
PROC: (CPT 63047; principal; 2023-05-12 11:30)
DX: M48.062 Spinal stenosis, lumbar region with neurogenic claudication (principal); R26.2 Difficulty in walking, not elsewhere classified; R29.2 Abnormal reflex; E78.00 Pure hypercholesterolemia, unspecified; Q21.12 Patent foramen ovale; D72.829 Elevated white blood cell count, unspecified; G47.33 Obstructive sleep apnea (adult) (pediatric); J45.909 Unspecified asthma, uncomplicated; Z79.82 Long term (current) use of aspirin; Z79.51 Long term (current) use of inhaled steroids; Z79.899 Other long term (current) drug therapy; Z88.1 Allergy status to other antibiotic agents; Z86.73 Personal history of transient ischemic attack (TIA), and cerebral infarction without residual deficits; F17.210 Nicotine dependence, cigarettes, uncomplicated
CPT/HCPCS: 63047; 82947; J0131; J1170; J1885; J2250; J2371; J2405; J2704; J3010; J3370

== ENCOUNTER → 2023-05-12 09:24 | Outpatient (BNV) | payer BC, SELFPAY | PROVIDERS: PCP Internal Medicine; Visit Provider Physician Assistant | DX: M48.062 Spinal stenosis, lumbar region with neurogenic claudication (principal) | CPT/HCPCS: 63047; 99499 ==

== ENCOUNTER 2023-06-02 13:28 | Outpatient (AMB) | payer BC, SELFPAY ==
--- NOTE | 2023-06-02 13:52 | HO.SPINEOV ---
Intake Intake Visit Reasons: 1st post op Intake Note: Ms. Singh is here today for her 1st post-op visit. Agent Telegrapher Required: No Allergies amoxicillin [AMOXICILLIN] Allergy (Unknown, Verified 05/12/23 10:01) RASH doxycycline [DOXYCYCLINE] Allergy (Unknown, Verified 05/12/23 10:01) RASH clavulanic acid [From Augmentin] Allergy (Verified 05/12/23 10:01) Rash cortisone Allergy (Verified 05/12/23 10:01) Redness of Skin methylprednisolone Allergy (Verified 05/12/23 10:01) Redness of Skin Assessment & Plan Assessment & Plan (1) Lumbar stenosis with neurogenic claudication: Code(s): M48.062 - Spinal stenosis, lumbar region with neurogenic claudication Plan Procedure: L4-5 Laminotomy, Partial facetectomy and foraminotomy Luisa is a pleasant 52-year-old female who comes in today for her 1st postoperative visit. She had surgery for low back pain with radiation to her bilateral lower extremities. She reports she is satisfied with the surgery and does feel better than she did preoperatively. The patient reports she is up walking around and completing the majority of her ADLs. Unfortunately she does still have quite a bit of tenderness in her low back and cramping in her bilateral buttocks. We discussed the postoperative healing course, and she was encouraged that her inflammation will continue to reduce. I expect her to start feeling much better between weeks 4-6. No new neurological deficits. Sensation grossly intact. Patient is able to ambulate well, rises from a seated position without difficulty. Incision sites are closed, well healing, with no signs of drainage. We will follow-up with the patient in 6 weeks for her 2nd postoperative visit. At that time we will get x-rays to review with the patient. Jose Hernandez MD,PhD [facility] Coding Level of Care Code Global (39493) Diagnoses Lumbar stenosis with neurogenic claudication M48.062
== END 2023-06-02 14:07 | disposition home or self-care (01) ==
PROVIDERS: PCP Internal Medicine; Visit Provider Physician Assistant
DX: M48.062 Spinal stenosis, lumbar region with neurogenic claudication (principal)
CPT/HCPCS: 99024

== ENCOUNTER → 2023-06-02 13:28 | Outpatient (BNVA) | payer BC, SELFPAY | PROVIDERS: PCP Internal Medicine; Visit Provider Physician Assistant ==

== ENCOUNTER 2024-07-01 09:54 | Emergency (ER) | payer BC, SELFPAY ==
--- NOTE | ~2024-07-01 | CT_ITS ---
EXAMINATION: CT HEAD WITHOUT IV CONTRAST HISTORY: anisocoria. TECHNIQUE: Unenhanced helical CT of the head was performed per standard departmental protocol. Coronal and sagittal reformats of the head were also evaluated. One or more of the following techniques was used for dose reduction: Automated exposure control, adjustment of the mA and/or kV according to patient size, use of iterative reconstruction technique. DLP: 693 mGy-cm COMPARISON: Comparison is made with the prior examination dated 03/22/2016. FINDINGS: BRAIN: The brain parenchyma is unremarkable. There is normal west/white differentiation. The ventricular system is normal in size and configuration. There is no mass effect or midline shift. No intra- or extra-axial fluid collections are identified. SINUSES: The visualized paranasal sinuses are clear. The mastoid air cells and middle ear cavities are well pneumatized. ORBITS: The visualized orbits are unremarkable. BONES/SOFT TISSUES: The extracranial soft tissues are unremarkable. The calvarium is intact. No suspicious lytic or sclerotic lesions. CT/CT head/brain wo IV con IMPRESSION: No acute intracranial abnormality. Electronically signed by: Ayden Ferrera MD 07/01/2024 01:58 PM EDT
--- NOTE | ~2024-07-01 | CT_ITS ---
EXAMINATION: CT ABDOMEN PELVIS WITH IV CONTRAST HISTORY: bloody diarrhea, lower abd pain, leukocytosis COMPARISON: Comparison is made with the prior examination dated 02/06/2023. TECHNIQUE: CT scan of the abdomen and pelvis was performed following administration of 85 mL Omnipaque 350 using standard departmental protocol. Coronal and sagittal reformatted images were generated and reviewed. Oral contrast material was not administered at the request of the referring physician. This CT exam was performed with one or more of the following dose reduction techniques: automated exposure control, adjustment of the mA and/or kV according to patient size, use of iterative reconstruction technique. DLP: 700 mGy-cm FINDINGS: LOWER CHEST: The visualized lung bases are clear. There is no pleural effusion. CARDIOVASCULATURE: The heart is normal in size. There is no pericardial effusion. LIVER: The liver is normal in size and contour. No liver mass is identified. The hepatic and portal veins are patent. GALLBLADDER / BILE DUCTS: The gallbladder is unremarkable. There is no intra or extrahepatic biliary ductal dilatation. SPLEEN: The spleen is normal in size. No focal splenic lesion is identified. PANCREAS: The pancreas is unremarkable in appearance. ADRENAL GLANDS: Within normal limits. KIDNEYS/RETROPERITONEUM: No renal calculi are identified. There is no hydronephrosis. No renal masses are identified. LYMPH NODES: No abdominal or pelvic lymphadenopathy. VASCULATURE: The abdominal aorta demonstrates atherosclerotic calcification, but is normal in caliber. MESENTERY/PERITONEUM: No free fluid. No masses. There is no free intraperitoneal gas. STOMACH: The stomach is collapsed, limiting evaluation. SMALL BOWEL: The small bowel is normal in caliber. COLON: There is wall thickening of the splenic flexure of the colon extending from the mid transverse colon through the proximal descending colon. There is mild surrounding inflammatory stranding. Findings are consistent with colitis. There is no extraluminal gas or loculated fluid collection. APPENDIX: The appendix is not seen, however no inflammatory changes are seen adjacent to the cecum. URINARY BLADDER/PELVIC ORGANS: The urinary bladder is collapsed, limiting evaluation. The uterus and ovaries are unremarkable. BONES / SOFT TISSUES: No suspicious bony or soft tissue abnormalities. CT/CT abdomen pelvis w IV con IMPRESSION: Findings consistent with colitis involving the splenic flexure of the colon as described. Electronically signed by: Ayden Ferrera MD 07/01/2024 01:38 PM EDT RP
[2024-07-01 10:04] VITALS: BP 152/71; PULSE 80; RESP 16; TEMP 37; O2SAT 94; BMI 35.4
[2024-07-01 10:30] LABS: MANUAL DIFF FLAG NO
[2024-07-01 10:33] LABS: Basophils Absolute Auto 0.1 X10*3/uL (0.0-0.2); Basophils Percent Auto 0.3 % (0-2); Eosinophils Absolute Auto 0.2 X10*3/uL (0.0-0.4); Eosinophils Percent Auto 1.1 % (0-4); Hematocrit 49.1 % (37.0-47.0); Imm Gran Abs Auto 0.13 X10*3/uL (0.00-0.03); Imm Gran Pct Auto 0.8 % (0.0-0.4); Lymphocytes Absolute Auto 1.4 X10*3/uL (1.2-4.9); Lymphocytes Percent Auto 7.9 % (20-40); Mean Corpuscular HGB Conc 34.6 g/dl (31.0-35.0); Mean Corpuscular Hemoglobin 31.9 pg (27.0-33.0); Mean Corpuscular Volume 92.1 fL (80.0-98.0); Mean Platelet Volume 9.5 fL (9.4-12.3); Monocytes Percent Auto 5.8 % (2-11); Neutrophils Absolute Auto 14.5 x10*3/uL (2.0-8.3); Neutrophils Percent Auto 84.1 % (45-73); Platelet Count 276 X10*3/uL (160-400); Red Blood Count 5.33 X10*6/uL (4.20-5.50); White Blood Count 17.3 X10*3/uL (4.8-10.8)
[2024-07-01 10:44] LABS: Alanine Aminotransferase 27 U/L (0-31); Albumin Level 4.3 g/dL (3.5-5.0); Alkaline Phosphatase 60 U/L (39-117); Anion Gap 13 (12-20); Aspartate Amino Transferase 23 U/L (5-31); Bilirubin Total 0.8 mg/dL (0.0-1.0); Blood Urea Nitrogen 10 mg/dL (9-16); Calcium 10.2 mg/dL (8.4-10.2); Carbon Dioxide 28 mmol/L (22-29); Chloride 103 mmol/L (96-108); Creatinine Clr Calc Pharmacy 102.5; Estimated Glomerular Filt Rate > 60; Glucose Random 117 mg/dL (60-115); Potassium 4.1 mmol/L (3.3-5.1); Sodium 140 mmol/L (135-145); Total Protein 7.3 g/dL (6.5-8.0)
--- NOTE | 2024-07-01 11:01 | ED.ABDPAIN ---
HPI - Abdominal Pain General Chief Complaint: Abdominal Pain Stated Complaint: Rectal bleeding, abd pain Time Seen by Provider: 07/01/24 10:48 Source: patient Mode of arrival: ambulatory Limitations: no limitations History of Present Illness ED Provider: Kerry Chavez PA-C HPI narrative: 53 yo female with history of CVA at age 39 who presents to the ER for evaluation of lower abdominal pain and cramping along with N/V/D that started acutely at 2am yesterday. She reports several episodes of nonbloody vomiting and diarrhea early on 06/30. She developed bloody diarrhea yesterday during the day that are preceded by intense lower abdominal cramps. She reports the last 12 BMS she has had they have been bright red blood with no stool. Last episode was at 6am today. She reports the vomitus is clear. She denies any concern for food poisoning or sick contacts. No fever or chills but she has had a headache since yesterday. No urinary symptoms, SOB, chest pain. She has never had a colonoscopy. She reports history of Crohns and UC in her family. Related Data Home Medications ?Medication ?Instructions ?Recorded ?Confirmed aspirin 325 mg tablet,delayed 325 mg PO DAILY 07/01/21 05/12/23 release fluoxetine 20 mg capsule (Prozac) 20 mg PO BEDTIME 07/01/21 05/12/23 rosuvastatin 40 mg tablet (Crestor) 40 mg PO BEDTIME 07/01/21 05/12/23 albuterol sulfate 90 mcg/actuation 1 inh inhalation QID PRN Shortness 05/06/23 05/12/23 aerosol inhaler Of Breath Or Wheezing metoprolol succinate 25 mg 12.5 mg PO BID 05/06/23 05/12/23 tablet,extended release 24 hr oxycodone-acetaminophen 5 mg-325 1 tab PO QID PRN Pain 05/06/23 05/12/23 mg tablet umeclidinium 62.5 mcg-vilanterol 1 ea inhalation DAILY 05/06/23 05/12/23 25 mcg/actuation powdr for inhalation (Anoro Ellipta) Previous Rx's ?Medication ?Instructions ?Recorded cyclobenzaprine 10 mg tablet 10 mg PO TID PRN muscle spasm #30 05/15/23 tabs prednisone 10 mg tablet 10 mg PO DIRECTED #21 tabs 05/15/23 gabapentin 100 mg capsule 100 mg PO TID nerve pain #30 caps 05/29/23 ciprofloxacin HCl 500 mg tablet 500 mg PO BID #14 tabs 07/01/24 metronidazole 500 mg tablet 500 mg PO BID 7 days #14 tabs 07/01/24 ondansetron 4 mg disintegrating 4 mg PO Q8H PRN nausea and 07/01/24 tablet vomiting #7 tabs Allergies Allergy/AdvReac Type Severity Reaction Status Date / Time amoxicillin [AMOXICILLIN] Allergy Unknown RASH Verified 07/01/24 10:06 doxycycline [DOXYCYCLINE] Allergy Unknown RASH Verified 07/01/24 10:06 clavulanic acid Allergy Rash Verified 07/01/24 10:06 [From Augmentin] cortisone Allergy Redness of Verified 07/01/24 10:06 Skin methylprednisolone Allergy Redness of Verified 07/01/24 10:06 Skin Review of Systems Review of Systems Yes all other systems are reviewed and are negative PMFSH Past Medical History Medical History (Updated 07/01/24 @ 13:44 by BRAULIO Delgadillo) COVID-19 Back pain Arthritis PTSD (post-traumatic stress disorder) Anxiety Depression Weakness Leukocytosis Sleep apnea Asthma Hypercholesteremia PFO (patent foramen ovale) TIA (transient ischemic attack) Surgical History (Updated 05/06/23 @ 12:01 by Rachel Barragan RN) Hx of cardiac catheterization S/P right knee arthroscopy Social History Social History Are you a primary administrator health care facility to a significant other at home: No Do you presently have visiting nurse or other home services: No Patient Tobacco Use Status: Current everyday Tobacco user Tobacco use type: Cigarette Cigarette Packs Per Day: 1 Cigarettes Per Day: 20.0 Years Smoked: 33 Current occupational status: employed 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 Oriented X3. No acute distress. Head: normocephalic, atraumatic. Eyes: left pupil 4mm and reactive to light. right pupil 3 mm and reactive to light. no conjunctival pallor ENT: Pharynx normal. No tonsillar swelling or exudate. moist mucus membranes Neck: Normal inspection. Neck supple. CVS: Normal heart rate and rhythm. Pulses normal. Respiratory: No respiratory distress. Breath sounds normal. Abdomen: Soft with lower abdominal tenderness, no rebound or guarding, normal active +BS x4 Skin: Skin warm and dry. Normal skin color. Normal skin turgor. No rashes. Extremities: No lower extremity edema. No joint swelling. Neuro/psych: Oriented X 3. No motor deficit. No sensory deficit. CN II-XII intact. Normal speech and cognition. Medical Decision Making Medical Decision Making MDM Narrative: 53-year-old female presents the ER for evaluation of lower abdominal pain and rectal bleeding that started yesterday morning. She has also had several episodes of nonbloody vomiting. The last time she vomited and had diarrhea was at 06:00 today. She has some lower abdominal tenderness on examination. She also has mild anisocoria associated with a mild headache, no other neurologic findings. NIH is 0 patient's lab workup showed leukocytosis of 17.3. She reports this is chronic, last WBC count we have is from 2022 and was 15.9. She also is polycythemic with H&H of 17/49. LFTs and electrolytes are all unremarkable. An IV was established and she was given IV Zofran, declined the need for morphine. GI panel was ordered along with CT scan of the abdomen. Given her anisocoria CT of the head was also done. While in the ER patient was unable to have a bowel movement, no bleeding on exam, no bleeding in the several hours she was observed here. CT scan resulted with colitis, mostly in the splenic flexure. CT head was unremarkable. Unable to collect GI panel as she did not have any bowel movements here. She is feeling better. She would like to go home. Will empirically treat as infectious colitis with ciprofloxacin and Flagyl, she has an allergy to penicillin. She has never had a colonoscopy and this needs to be addressed. She has a strong family history of inflammatory bowel disease. At this time patient is considered stable for discharge home with outpatient follow-up. She was given strict return precautions. Differential Diagnosis Differential Diagnoses: The differential diagnosis associated with the presentation includes Diverticular lower GI bleed, colitis, hemorrhoidal bleeding, gastroenteritis, inflammatory bowel disease, low suspicion for ischemic bowel Admission/Observation Consideration of admission/observation: Escalation of care including admission/observation considered Lab Data MDM Lab Attestation statement: I reviewed the patient's lab results. leukocytosis (chronic per her report), polycythemia/hemoconcentration likely due to dehydration 07/01/24 10:24 07/01/24 10:24 Labs: Lab Results 07/01/24 07/01/24 Range/Units 10:24 11:30 WBC 17.3 H (4.8-10.8) X10*3/uL RBC 5.33 (4.20-5.50) X10*6/uL Hgb 17.0 H (12.0-16.0) g/dl Hct 49.1 H (37.0-47.0) % MCV 92.1 (80.0-98.0) fL MCH 31.9 (27.0-33.0) pg MCHC 34.6 (31.0-35.0) g/dl RDW 13.0 (11.0-16.0) % Plt Count 276 (160-400) X10*3/uL MPV 9.5 (9.4-12.3) fL Immature Gran % (Auto) 0.8 H (0.0-0.4) % Neut % (Auto) 84.1 H (45-73) % Lymph % (Auto) 7.9 L (20-40) % [place] % (Auto) 5.8 (2-11) % Eos % (Auto) 1.1 (0-4) % Baso % (Auto) 0.3 (0-2) % Lymph # (Auto) 1.4 (1.2-4.9) X10*3/uL [place] # (Auto) 1.0 (0.1-1.2) X10*3/uL Eos # (Auto) 0.2 (0.0-0.4) X10*3/uL Baso # (Auto) 0.1 (0.0-0.2) X10*3/uL Abs Immat Gran (auto) 0.13 H (0.00-0.03) X10*3/uL Absolute Neuts (auto) 14.5 H (2.0-8.3) x10*3/uL Absolute Nucleated RBC 0.000 (0.0-0.012) X10*3/uL Nucleated RBC % (auto) 0.0 (0.0-0.2) /100WBC Sodium 140 (135-145) mmol/L Potassium 4.1 (3.3-5.1) mmol/L Chloride 103 (96-108) mmol/L Carbon Dioxide 28 (22-29) mmol/L Anion Gap 13 (12-20) BUN 10 (9-16) mg/dL Creatinine 0.67 (0.5-1.4) mg/dL Estim Creat Clear Calc 102.5 Estimated GFR > 60 Random Glucose 117 H (60-115) mg/dL Calcium 10.2 (8.4-10.2) mg/dL Total Bilirubin 0.8 (0.0-1.0) mg/dL AST 23 (5-31) U/L ALT 27 (0-31) U/L Alkaline Phosphatase 60 (39-117) U/L Total Protein 7.3 (6.5-8.0) g/dL Albumin 4.3 (3.5-5.0) g/dL Lipase 18 (8-78) U/L Urine Color Dark Yellow Urine Appearance Clear Urine pH 6.0 (5.0-9.0) Ur Specific [place] 1.020 (1.005-1.025) Urine Protein Negative (Neg-Trace) mg/dL Urine Glucose (UA) Negative (Negative) mg/dL Urine Ketones Trace (Negative) mg/dL Urine Blood Negative (Negative) Urine Nitrite Negative (Negative) Ur Leukocyte Esterase Trace H (Negative) Urine RBC 0-2 (0-2) /HPF Urine WBC 0-5 (0-5) /HPF Ur Squamous Epith Cells 0-2 (0-2) /HPF Urine Bacteria None Seen (None Seen) Hyaline Casts 0-2 (0-2) /LPF Independent Interpretation I performed an independent interpretation of an: CT Scan Interpretation: no air-fluid levels to suggest obstruction, no visible pericolonic abscess Radiology Impression Discussion of test interpretation with radiology: I have reviewed the radiologist's reading. External Record Review External record reviewed: Prior outpatient labs Prescription Management I considered prescription management with: Pain Medication and Antibiotic Chronic Conditions Patient?s care impacted by: Other ( CVA) Medications Administered Discontinued Medications Generic Name Dose Route Start Last Admin Trade Name Frealexia PRN Reason Stop Dose Admin Lactated Ringer's 1,000 mls @ 999 mls/hr 07/01/24 11:30 07/01/24 14:23 Lr IV 07/01/24 12:30 Infused .Q1H1M LATISHA Infusion Iohexol 100 ml 07/01/24 12:50 07/01/24 12:51 Iohexol 350 Mg/Ml 100 Ml Infus..Btl IV 07/01/24 12:51 85 ml ONCE ONE Administration Morphine Sulfate 4 mg 07/01/24 11:18 07/01/24 14:23 Morphine Sulfate 4 Mg/Ml Cartridge IVPUSH 07/01/24 11:19 Not Given ONCE ONE Protocol Ondansetron HCl 4 mg 07/01/24 11:18 07/01/24 14:23 Ondansetron Hcl 4 Mg/2 Ml Vial IVPUSH 07/01/24 11:19 Not Given ONCE ONE Critical Care Time Critical Care Time Critical Care Time: No Discharge Plan Discharge Clinical Impression: Colitis Patient Disposition: Home, Self-Care Instructions: Colitis (ED) Additional Instructions: Your CT scan today showed colitis. You did not have any anemia, in fact your blood counts were on the elevated side, likely due to dehydration. Take the prescribed antibiotics as directed, complete the entire course and do not miss any doses Rest and drink plenty of fluids. Recommend a clear liquid diet for the next 24 hours and slowly advanced as tolerated. Recommend following up with GI, you need a colonoscopy If you develop new or worsening symptoms call 911 or come back to the ER for further evaluation. Prescriptions: New ciprofloxacin HCl 500 mg tablet 500 mg PO BID Qty: 14 0RF metronidazole 500 mg tablet 500 mg PO BID 7 Days Qty: 14 0RF ondansetron 4 mg tablet,disintegrating 4 mg PO Q8H PRN (Reason: nausea and vomiting) Qty: 7 0RF No Action cyclobenzaprine 10 mg tablet 10 mg PO TID PRN (Reason: muscle spasm) Qty: 30 0RF prednisone 10 mg tablet 10 mg PO DIRECTED Qty: 21 0RF Rx Instructions: 6 tabs po day 1, 5 tabs po day 2, 4 tabs po day 3, 3 tabs po day 4, 2 tabs po day 5, 1 tab po day 6 gabapentin 100 mg capsule 100 mg PO TID Qty: 30 0RF metoprolol succinate 25 mg tablet extended release 24 hr 12.5 mg PO BID Anoro Ellipta 62.5-25 mcg/actuation blister with device 1 ea inhalation DAILY oxycodone-acetaminophen 5-325 mg tablet 1 tab PO QID PRN (Reason: Pain) albuterol sulfate 90 mcg/actuation Hfa Aerosol Inhaler 1 inh INHALATION QID PRN (Reason: Shortness Of Breath Or Wheezing) rosuvastatin [Crestor] 40 mg tablet 40 mg PO BEDTIME aspirin 325 mg tablet,delayed release (DR/EC) 325 mg PO DAILY fluoxetine [Prozac] 20 mg capsule 20 mg PO BEDTIME Referrals: [facility] [place] [facility] [Provider Group] Kirill Potts III, MD [Primary Care Provider] - Stand Alone Forms: Work/School Release Interventions: ED Discharge Assessment Last Done: 07/01/24 14:28 Discharge Date/Time: 07/01/24 14:29 Print Language: [place]
[2024-07-01] MEDS: Lactated Ringers 1,000 ML 999 ML IV (11:31)
[2024-07-01 11:33] LABS: Lipase 18 U/L (8-78)
--- NOTE | 2024-07-01 11:35 | PC.NURSE ---
Addendum entered by Rubina Somers 07/01/24 12:47: pt is currently refusing the morphine and zofran, states she does not like how the morphine makes her feel and the pain is not horrible and the vomiting and nausea has subsided Original Note: pt is alert and oriented, skin pwd, respirations even and unlabored, pt reports that yesterday started with vomiting and terrible diarrhea-pt reports having about 12 episodes of diarrhea and last few times only bright red blood is coming out, abd soft and non-tender , pt is also reporting a headache 5/10 , left pupil slightly larger then the right pupil which is not the pt's baseline, pt does report hx of a stroke when she was 19 years old-no deficits from the stroke
[2024-07-01 11:37] LABS: Appearance Urine Clear; Color Urine Dark Yellow; Glucose Urine UA Negative (Negative); Leukocyte Esterase Urine Trace (Negative); Nitrite Urine Negative (Negative); UMIC TRIGGER UACC YES; Urine Blood Negative (Negative); Urine Ketones Trace mg/dL (Negative); Urine Protein Negative (Neg-Trace)
[2024-07-01 11:51] LABS: Bacteria Urine None Seen (None Seen); Hyaline Casts Urine 0-2 /LPF (0-2); RBC Urine 0-2 /HPF (0-2); Squamous Epithelial Cell Urine 0-2 /HPF (0-2); WBC Urine 0-5 /HPF (0-5)
[2024-07-01 12:30] VITALS: BP 121/75; PULSE 72; RESP 12; TEMP 36.2; O2SAT 94
[2024-07-01] MEDS: iohexoL 350 MG/ML 100 ML INFUS..BTL IV (12:51)
[2024-07-01 14:28] VITALS: BP 121/75; PULSE 72; RESP 12; TEMP 36.2; O2SAT 94
== END 2024-07-01 14:29 | disposition home or self-care (01) ==
PROVIDERS: Physician Assistant; Emergency Provider Emergency Medicine; PCP Internal Medicine
DX: K52.9 Noninfective gastroenteritis and colitis, unspecified (principal); K62.5 Hemorrhage of anus and rectum; H57.02 Anisocoria; R10.30 Lower abdominal pain, unspecified; D72.829 Elevated white blood cell count, unspecified; R51.9 Headache, unspecified; R11.2 Nausea with vomiting, unspecified; F17.210 Nicotine dependence, cigarettes, uncomplicated; Z79.899 Other long term (current) drug therapy
CPT/HCPCS: 36415; 70450; 74177; 80053; 81001; 83690; 85025; 96360; 96361; 99284; J7120; Q9967

== ENCOUNTER → 2024-07-01 11:18 | Outpatient (BNV) | payer BC, SELFPAY | PROVIDERS: Emergency Provider Emergency Medicine; PCP Internal Medicine; Visit Provider Radiology Diagnostic Radiology | DX: R10.30 Lower abdominal pain, unspecified (principal); D72.829 Elevated white blood cell count, unspecified; K92.1 Melena; H57.02 Anisocoria | CPT/HCPCS: 70450; 74177 ==

== ENCOUNTER 2024-10-09 19:13 | Emergency (ER) | payer BC, SELFPAY ==
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
[2024-10-09 19:19] VITALS: BP 174/105; PULSE 81; RESP 16; TEMP 36.6; O2SAT 94; BMI 35.3
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
--- OUTSIDE RECORDS SUMMARY | 2024-10-09 19:37 | XMS_ITS | Clinical Summary ---
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 0 Active metoprolol succinate (TOPROL-XL) 24 hr tablet 25 mg Take by mouth daily. 1/2 tab twice daily 0 Active FLUoxetine (PROzac) 20 MG/5ML solution Take by mouth daily. 0 Active Umeclidinium-Vilantero l (ANORO ELLIPTA IN) Inhale into the lungs. 0 Active oxyCODONE-acetaminophe n (PERCOCET) 5-325 MG per tablet Take 1 tablet by mouth every 4 (four) hours as needed for pain. 0 Active aspirin 325 MG tablet Take 1 tablet (325 mg total) by mouth daily. 0 Active Multiple Vitamin (MULTIVITAMIN ADULT PO) Take by mouth. 0 Active Active Problems Problem Noted Date Diagnosed Date Neutrophilia 08/15/2022 Social History Tobacco Use Types Packs/Day Years Used Date Smoking Tobacco: Never Assessed Sex and Gender Information Value Date Recorded Sex Assigned at Not on file Gender Identity Not on file Sexual Orientation Not on file Job Start Date Occupation Industry Not on file Not on file Not on file Last Filed Vital Signs Vital Sign Reading Time Taken Comments Blood Pressure 166/79 01/13/2023 9:59 AM EDT Pulse 66 01/13/2023 9:59 AM EDT Temperature 37.3 C (99.1 F) 01/13/2023 9:59 AM EDT Respiratory Rate - - Oxygen Saturation 97% 01/13/2023 9:59 AM EDT Inhaled Oxygen Concentration - - Weight 110.2 kg (243 lb) 01/13/2023 9:59 AM EDT Height 160 cm (5' 3 ) 01/13/2023 9:59 AM EDT Body Mass Index 43.05 01/13/2023 9:59 AM EDT Plan of Treatment Health Maintenance Due Date Last Done Comments Hepatitis B Vaccines (1 of 3 - 3-dose series) 1969 Hepatitis C Screening 1969 Pneumococcal Vaccine (1 of 2 - PCV) 12/04/1975 Depression Screening 1981 BMI Counseling 12/04/1987 Preventative Health Evaluation 12/04/1987 DTap / Tdap / Td (1 - Tdap) 1988 Shingrix-Zoster Vaccine (1 o f 2) 1988 Cervical Cancer Screening (Pap Smear) 1990 Colon Cancer Screening (Colonoscopy) 2014 Breast Cancer Screening (Mammogram) 12/04/2019 COVID-19 Vaccine (4 - 2023-2 5 season) 2023 03/08/2021, 05/01/2020, 04/10/2020 Influenza Vaccine (Season Ended) 2024 01/17/2020, 12/25/2014 RSV Ped < 20 months Aged Out No longe r eligible based on patient's age to complete this topic Care Teams Pipe Line Repairer Relationship Specialty Start Date End Date Kirill Potts MD PCP - General Internal Medicine 06/26/22
[2024-10-09 20:04] VITALS: BP 132/70; PULSE 73; RESP 16; O2SAT 95
[2024-10-09 22:17] VITALS: BP 132/70; PULSE 73; RESP 16; TEMP 36.5; O2SAT 95
== END 2024-10-09 22:18 | disposition home or self-care (01) ==
PROVIDERS: Emergency Provider Emergency Medicine; PCP Internal Medicine
DX: S70.01XA Contusion of right hip, initial encounter (principal); R51.9 Headache, unspecified; M54.2 Cervicalgia; R10.2 Pelvic and perineal pain; V28.59XA Other motorcycle passenger injured in noncollision transport accident in traffic accident, initial encounter; Y93.9 Activity, unspecified; Y92.410 Unspecified street and highway as the place of occurrence of the external cause; Y99.8 Other external cause status; Z79.899 Other long term (current) drug therapy; F17.210 Nicotine dependence, cigarettes, uncomplicated
CPT/HCPCS: 70450; 72125; 73502; 99284

== ENCOUNTER → 2024-10-09 19:26 | Outpatient (BNV) | payer BC, SELFPAY | PROVIDERS: PCP Internal Medicine; Visit Provider Student in an Organized Health Care Education/Training Program | DX: M47.892 Other spondylosis, cervical region (principal); R51.9 Headache, unspecified; M25.751 Osteophyte, right hip | CPT/HCPCS: 70450; 72125; 73502 ==